=== PATIENT | female | born 1935 | race Caucasian/White ===

== ENCOUNTER 2016-07-06 13:35 | Observation (INO) | payer OTHER ==
[~2016-07-06] VITALS: Ht 154.9 cm; Wt 70.8 kg
[~2016-07-06 13:35] MED LIST: ALDACTONE25 MG PO; AMLODIPINE BES2.5 MG PO; ARMOUR THYROID120 M1 PO; ARMOUR THYROID120 MG PO; ARMOUR THYROID90 MG PO; ASCORBIC ACID500 M3 PO; BENADRYL25 MG PO; CARVEDILOL25 MG PO; CENTRUM SILVER1 EAC3 PO; CLONAZEPAM1 MG PO; CLONIDINE HCL0.1 MG PO; COLACE100 MG PO; COREG CR80 MG PO; ELIQUIS5 MG PO; FOLIC ACID1 MG PO; FUROSEMIDE20 MG PO; HYDROCHLOROTHIA25 MG PO; HYDROCODON-ACE1 EAC7 PO; KLOR-CON 1010 ME1 PO; LANSOPRAZOLE30 MG PO; LOVENOX40 MG/0.4 SC; PRINIVIL40 MG PO; PROTONIX40 MG PO; SENNA-TIME S T1 EACH PO; TRAMADOL HCL50 MG PO
[2016-07-06] MEDS ORDERED: KLOR-CON 1010 ME1 PO (14:54)
[2016-07-06] MEDS ORDERED: SYNTHROID75 MCG PO (14:54)
[2016-07-06] MEDS ORDERED: FUROSEMIDE40 MG PO (14:55)
[2016-07-06] MEDS ORDERED: LANSOPRAZOLE30 MG PO (14:55)
[2016-07-06] MEDS ORDERED: COREG25 M1 PO (14:55)
[2016-07-06] MEDS ORDERED: ELIQUIS5 MG PO (14:55)
[2016-07-06] MEDS ORDERED: CLONIDINE HCL0.1 MG PO (14:55)
[2016-07-06] MEDS ORDERED: AMLODIPINE BES2.5 MG PO (14:56)
[2016-07-06 15:25] LABS: HEMATOCRIT 40.7 % (36.0-46.0); MCH 31.6 PG (29.0-34.0); MCHC 35.1 G/DL (30.0-36.0); MCV 89.8 FL (83-99); MEAN PLAT.VOLUME 9.5 uM^3 (9.5-12.4); PLATELET COUNT 230 K/uL (156-360); RBC DIS.WIDTH-CV 12.7 % (11.8-14.6); RBC DIS.WIDTH-SD 41.3 % (39-53); RED BLOOD COUNT 4.53 M/uL (3.80-5.20); WHITE BLOOD COUNT 8.3 K/uL (4.1-10.2)
[2016-07-06 15:33] LABS: CHLORIDE 95 mEq/L (99-109); SODIUM 133 mEq/L (136-147)
[2016-07-06 15:34] LABS: INTER. NORMALIZED RATIO 1.1; PROTHROMBIN TIME 10.9 (9.2-11.2)
[2016-07-06 15:36] LABS: GLUCOSE 107 mg/dL (70-99)
[2016-07-06 15:37] LABS: ANION GAP 14 MEQ/L (2-14); TOTAL BILIRUBIN 0.5 mg/dL (0.0-1.0)
[2016-07-06 15:39] LABS: ALKALINE PHOSPHATASE 90 IU/L (3-129); GFR ESTIMATE (CALCULATED) 51 mL/min/
[2016-07-06 15:40] LABS: UREA NITROGEN (BUN) 17 mg/dL (9-23)
[2016-07-06 15:41] LABS: DIRECT BILIRUBIN 0.2 mg/dL (0.0-0.3)
[2016-07-06 15:48] LABS: TROP-I INTERPRETATION NEGATIVE; TROPONIN-I < 0.01 ng/mL (0.0-0.30)
[2016-07-06 18:16] VITALS: BP 172/78
[2016-07-06] MEDS ORDERED: TRAMADOL HCL50 MG PO (20:37)
[2016-07-06] MEDS ORDERED: VALIUM2 MG PO (20:39)
[2016-07-06] MEDS ORDERED: ASCORBIC ACID500 M4 PO (20:41)
[2016-07-06 21:36] VITALS: BP 152/82
[2016-07-06 22:04] LABS: TROP-I INTERPRETATION NEGATIVE; TROPONIN-I 0.03 ng/mL (0.0-0.30)
[2016-07-07 01:35] VITALS: BP 160/77
[2016-07-07 04:56] VITALS: BP 168/82
[2016-07-07 05:12] LABS: TROP-I INTERPRETATION NEGATIVE; TROPONIN-I 0.01 ng/mL (0.0-0.30)
[2016-07-07 09:32] LABS: MCH 31.8 PG (29.0-34.0); MCHC 35.1 G/DL (30.0-36.0); MCV 90.5 FL (83-99); MEAN PLAT.VOLUME 9.8 uM^3 (9.5-12.4); PLATELET COUNT 236 K/uL (156-360); RBC DIS.WIDTH-SD 43.2 % (39-53); RED BLOOD COUNT 4.31 M/uL (3.80-5.20)
[2016-07-07 10:00] LABS: ANION GAP 11 MEQ/L (2-14); CHLORIDE 98 MEQ/L (99-109); GFR ESTIMATE (CALCULATED) 56 mL/min/; GLUCOSE 96 mg/dL (70-99); SAMPLE HEMOLYSIS CHECK 0; SAMPLE ICTERIC CHECK 0; SAMPLE LIPEMIA CHECK 0; SODIUM 134 MEQ/L (136-147); UREA NITROGEN (BUN) 17 mg/dL (9-23)
== END 2016-07-07 11:35 | disposition home or self-care (01) ==
LOC: EME 13:35 → 5WEST 16:12 → EDOF 16:12 → 5WEST 17:54
PROVIDERS: Internal Medicine; Physician Assistant
DX: R07.89 Other chest pain (principal); I48.0 Paroxysmal atrial fibrillation; I16.0 Hypertensive urgency; I10 Essential (primary) hypertension; E87.1 Hypo-osmolality and hyponatremia; E03.9 Hypothyroidism, unspecified; Z79.01 Long term (current) use of anticoagulants; Z87.891 Personal history of nicotine dependence; Z85.3 Personal history of malignant neoplasm of breast; Z88.6 Allergy status to analgesic agent; Z88.1 Allergy status to other antibiotic agents
CPT/HCPCS: 71020; 71275; 80048; 80076; 83880; 84484; 85027; 85610; 93005; 99281; 99285; G0378; J0360; J1650

== ENCOUNTER 2017-11-02 19:20 | Inpatient (IN) | payer OTHER ==
[~2017-11-02] VITALS: Ht 152.4 cm; Wt 69.3 kg
[~2017-11-02 19:20] MED LIST changes: +ASCORBIC ACID500 M4 PO; +COREG25 M1 PO; +FUROSEMIDE40 MG PO; +SYNTHROID75 MCG PO; +VALIUM2 MG PO
[2017-11-02 20:01] LABS: BASOPHIL (%) 0.4 % (0-1); EOSINOPHIL (%) 1.1 % (0-5); EOSINOPHIL COUNT 0.1 K/uL (0-0.3); HEMATOCRIT 39.2 % (36.0-46.0); HEMOGLOBIN 13.8 G/DL (11.9-15.5); IMMATURE GRANULOCYTE (%) 0.7 % (0.0-0.7); LYMPHOCYTE (%) 27.9 % (15-42); LYMPHOCYTE COUNT 2.1 K/uL (1.0-2.8); MCH 32.9 PG (29.0-34.0); MCHC 35.2 G/DL (30.0-36.0); MCV 93.3 FL (83-99); MONOCYTE (%) 7.4 % (3-12); MONOCYTE COUNT 0.6 K/uL (0-0.8); NEUTROPHIL (%) 62.5 % (45-76); NEUTROPHIL COUNT 4.7 K/uL (1.8-6.4); PLATELET COUNT 217 K/uL (156-360); RBC DIS.WIDTH-CV 13.4 % (11.8-14.6); RBC DIS.WIDTH-SD 46.1 % (39-53); WHITE BLOOD COUNT 7.4 K/uL (4.1-10.2)
[2017-11-02 20:08] LABS: INTER. NORMALIZED RATIO 0.9
[2017-11-02 20:09] LABS: ALBUMIN 3.9 g/dL (3.2-4.8); CHLORIDE 98 mEq/L (99-109); SODIUM 133 mEq/L (136-147)
[2017-11-02 20:10] LABS: MAGNESIUM 1.8 mg/dL (1.3-2.7)
[2017-11-02 20:11] LABS: PTT 26.8 SEC (25-37)
[2017-11-02 20:12] LABS: GLUCOSE 109 mg/dL (70-99); TOTAL PROTEIN 6.9 g/dL (6.4-8.3)
[2017-11-02 20:14] LABS: TOTAL BILIRUBIN 0.6 mg/dL (0.0-1.0)
[2017-11-02 20:15] LABS: ALKALINE PHOSPHATASE 50 IU/L (3-129)
[2017-11-02 20:16] LABS: CREATININE 1.2 mg/dL (0.6-1.3); GFR ESTIMATE (CALCULATED) 45 mL/min/
[2017-11-02 20:17] LABS: AST (GOT) 23 IU/L (2-34); UREA NITROGEN (BUN) 19 mg/dL (9-23)
[2017-11-02 20:18] LABS: ALT (GPT) 25 IU/L (3-49)
[2017-11-02 20:21] LABS: TROP-I INTERPRETATION NEGATIVE; TROPONIN-I < 0.01 ng/mL (0.0-0.30)
[2017-11-02 21:14] LABS: THYROTROPIN (TSH) 3.2 MIU/L (0.4-5.5)
[2017-11-03 02:33] VITALS: BP 133/68
[2017-11-03 05:13] LABS: HEMATOCRIT 34.5 % (36.0-46.0); HEMOGLOBIN 11.9 G/DL (11.9-15.5); MCH 32.4 PG (29.0-34.0); MCHC 34.5 G/DL (30.0-36.0); PLATELET COUNT 211 K/uL (156-360); RBC DIS.WIDTH-CV 13.7 % (11.8-14.6); RBC DIS.WIDTH-SD 47.1 % (39-53); RED BLOOD COUNT 3.67 M/uL (3.80-5.20); WHITE BLOOD COUNT 5.7 K/uL (4.1-10.2)
[2017-11-03 05:37] VITALS: BP 170/80
[2017-11-03 05:38] LABS: CHLORIDE 101 MEQ/L (99-109); GFR ESTIMATE (CALCULATED) 56 mL/min/; GLUCOSE 99 mg/dL (70-99); POTASSIUM 3.5 MEQ/L (3.7-5.4); SODIUM 134 MEQ/L (136-147); UREA NITROGEN (BUN) 16 mg/dL (9-23)
[2017-11-03 06:33] VITALS: BP 175/80
[2017-11-03 07:35] VITALS: BP 202/99
[2017-11-03 13:58] VITALS: BP 145/76
[2017-11-03] MEDS ORDERED: DIAZEPAM5 MG PO (15:24)
[2017-11-03] MEDS ORDERED: ELIQUIS5 MG PO (15:24)
[2017-11-03] MEDS ORDERED: CARDIZEM CD,CA180 MG PO (15:24)
== END 2017-11-03 17:07 | disposition home or self-care (01) | DRG 176 ==
LOC: EME 19:20 → EDOF 11-03 00:31 → ENRESERV 11-03 00:36 → 4EAST 11-03 01:37
PROVIDERS: Emergency Medicine; Hospitalist
DX: I26.99 Other pulmonary embolism without acute cor pulmonale (principal); E87.1 Hypo-osmolality and hyponatremia; I48.0 Paroxysmal atrial fibrillation; I10 Essential (primary) hypertension; K21.9 Gastro-esophageal reflux disease without esophagitis; E78.5 Hyperlipidemia, unspecified; E03.9 Hypothyroidism, unspecified; M19.90 Unspecified osteoarthritis, unspecified site; H35.30 Unspecified macular degeneration; H35.52 Pigmentary retinal dystrophy; H54.61 Unqualified visual loss, right eye, normal vision left eye; I34.0 Nonrheumatic mitral (valve) insufficiency; I36.1 Nonrheumatic tricuspid (valve) insufficiency; F41.9 Anxiety disorder, unspecified; I48.2 Chronic atrial fibrillation; Z87.891 Personal history of nicotine dependence; Z90.13 Acquired absence of bilateral breasts and nipples; Z85.3 Personal history of malignant neoplasm of breast; Z90.49 Acquired absence of other specified parts of digestive tract; Z79.01 Long term (current) use of anticoagulants; Z82.5 Family history of asthma and other chronic lower respiratory diseases
CPT/HCPCS: 71275; 80048; 80053; 83735; 84439; 84443; 84484; 85025; 85027; 85379; 85610; 85730; 93005; 93306; 93970; 99281; 99285; J1650; J7040

== ENCOUNTER 2017-11-17 12:58 | Inpatient (IN) | payer OTHER ==
[2017-11-17] VITALS (7 sets, daily range): BP systolic 144–178; BP diastolic 85–111
[~2017-11-17] VITALS: Ht 152.4 cm; Wt 71.2 kg
[~2017-11-17 12:58] MED LIST changes: +CARDIZEM CD,CA180 MG PO; +DIAZEPAM5 MG PO
[2017-11-17] MEDS ORDERED: PREVACID30 MG PO (13:20)
[2017-11-17] MEDS ORDERED: CARVEDILOL25 MG PO (13:21)
[2017-11-17] MEDS ORDERED: AMLODIPINE BES2.5 MG PO (13:21)
[2017-11-17] MEDS ORDERED: CARTIA XT120 MG PO (13:22)
[2017-11-17] MEDS ORDERED: CARTIA XT180 MG PO (13:24)
[2017-11-17 13:29] LABS: CHLORIDE 81 mEq/L (99-109); POTASSIUM 3.9 mEq/L (3.7-5.4)
[2017-11-17 13:30] LABS: GLUCOSE 115 mg/dL (70-99)
[2017-11-17 13:33] LABS: SODIUM 112 mEq/L (136-147)
[2017-11-17 13:34] LABS: CREATININE 0.8 mg/dL (0.6-1.3); GFR ESTIMATE (CALCULATED) > 59 mL/min/
[2017-11-17 13:35] LABS: UREA NITROGEN (BUN) 17 mg/dL (9-23)
[2017-11-17 13:56] LABS: HEMOGLOBIN 11.8 G/DL (11.9-15.5); MCHC 37.6 G/DL (30.0-36.0); PLATELET COUNT 177 K/uL (156-360); RBC DIS.WIDTH-CV 12.5 % (11.8-14.6); RED BLOOD COUNT 3.61 M/uL (3.80-5.20); WHITE BLOOD COUNT 7.9 K/uL (4.1-10.2)
[2017-11-17 13:58] LABS: COMMENTS - BLOOD GASES A+C+; DEVICE NC; O2 FLOW 2 L/MIN; SITE RR; TOTAL RESP RATE 17 resp/min; pH 7.51 (7.35-7.45)
[2017-11-17 13:59] LABS: BASE EXCESS 1.5 mEq/L (-3 to +3); BICARBONATE 23.9 mEq/L (22-26); CARBOXY HGB 1.9 % (0-5); METHEMOGLOBIN 1.3 % (0-1.5); PCO2 30 mm Hg (35-45); PO2 71 mm Hg (80-100)
[2017-11-17 14:24] LABS: INTER. NORMALIZED RATIO 1.7
[2017-11-17 14:26] LABS: PTT 30.6 SEC (25-37)
[2017-11-17 14:29] LABS: CHLORIDE 80 mEq/L (99-109); POTASSIUM 3.8 mEq/L (3.7-5.4)
[2017-11-17 14:30] LABS: GLUCOSE 105 mg/dL (70-99)
[2017-11-17 14:34] LABS: CREATININE 0.8 mg/dL (0.6-1.3); GFR ESTIMATE (CALCULATED) > 59 mL/min/; SODIUM 112 mEq/L (136-147)
[2017-11-17 14:35] LABS: UREA NITROGEN (BUN) 17 mg/dL (9-23)
[2017-11-17 23:36] LABS: CHLORIDE 84 mEq/L (99-109)
[2017-11-17 23:37] LABS: POTASSIUM 3.2 mEq/L (3.7-5.4)
[2017-11-17 23:38] LABS: GLUCOSE 131 mg/dL (70-99)
[2017-11-17 23:42] LABS: CREATININE 0.8 mg/dL (0.6-1.3); GFR ESTIMATE (CALCULATED) > 59 mL/min/
[2017-11-17 23:43] LABS: UREA NITROGEN (BUN) 14 mg/dL (9-23)
[2017-11-17 23:47] LABS: SODIUM 116 mEq/L (136-147)
[2017-11-18] VITALS (20 sets, daily range): BP systolic 16–158; BP diastolic 59–85
[2017-11-18 00:18] LABS: UR CREATININE CONCENTRATION 36.3 MG/DL
[2017-11-18 05:41] LABS: BASOPHIL (%) 0.2 % (0-1); EOSINOPHIL (%) 0.6 % (0-5); HEMATOCRIT 32.5 % (36.0-46.0); HEMOGLOBIN 11.7 G/DL (11.9-15.5); IMMATURE GRANULOCYTE (%) 0.6 % (0.0-0.7); LYMPHOCYTE (%) 12.2 % (15-42); LYMPHOCYTE COUNT 0.8 K/uL (1.0-2.8); MCH 31.5 PG (29.0-34.0); MONOCYTE (%) 8.2 % (3-12); MONOCYTE COUNT 0.5 K/uL (0-0.8); NEUTROPHIL (%) 78.2 % (45-76); PLATELET COUNT 205 K/uL (156-360); RBC DIS.WIDTH-CV 12.5 % (11.8-14.6); RBC DIS.WIDTH-SD 40.5 % (39-53); RED BLOOD COUNT 3.72 M/uL (3.80-5.20); WHITE BLOOD COUNT 6.3 K/uL (4.1-10.2)
[2017-11-18 05:53] LABS: MCV 87.4 FL (83-99)
[2017-11-18 06:14] LABS: CHLORIDE 86 MEQ/L (99-109); CREATININE 0.8 MG/DL (0.6-1.3); GFR ESTIMATE (CALCULATED) > 59 mL/min/; POTASSIUM 3.5 MEQ/L (3.7-5.4); SODIUM 121 MEQ/L (136-147); UREA NITROGEN (BUN) 12 mg/dL (9-23)
[2017-11-18 06:19] LABS: GLUCOSE 88 mg/dL (70-99)
[2017-11-18 13:11] LABS: CHLORIDE 87 MEQ/L (99-109); CREATININE 0.8 MG/DL (0.6-1.3); GFR ESTIMATE (CALCULATED) > 59 mL/min/; GLUCOSE 95 mg/dL (70-99); POTASSIUM 3.4 MEQ/L (3.7-5.4); SODIUM 120 MEQ/L (136-147); UREA NITROGEN (BUN) 13 mg/dL (9-23)
[2017-11-18 18:35] LABS: CHLORIDE 88 MEQ/L (99-109); CREATININE 0.8 MG/DL (0.6-1.3); GFR ESTIMATE (CALCULATED) > 59 mL/min/; GLUCOSE 108 mg/dL (70-99); POTASSIUM 3.3 MEQ/L (3.7-5.4); SODIUM 121 MEQ/L (136-147); UREA NITROGEN (BUN) 15 mg/dL (9-23)
[2017-11-19 01:09] LABS: CHLORIDE 92 mEq/L (99-109); POTASSIUM 3.8 mEq/L (3.7-5.4); SODIUM 125 mEq/L (136-147)
[2017-11-19 01:11] LABS: GLUCOSE 99 mg/dL (70-99)
[2017-11-19 01:14] LABS: CREATININE 0.8 mg/dL (0.6-1.3); GFR ESTIMATE (CALCULATED) > 59 mL/min/
[2017-11-19 01:15] LABS: UREA NITROGEN (BUN) 15 mg/dL (9-23)
[2017-11-19 04:00] VITALS: BP 133/62
[2017-11-19 05:21] LABS: CHLORIDE 95 MEQ/L (99-109); CREATININE 0.8 MG/DL (0.6-1.3); GFR ESTIMATE (CALCULATED) > 59 mL/min/; GLUCOSE 99 mg/dL (70-99); SODIUM 125 MEQ/L (136-147); UREA NITROGEN (BUN) 13 mg/dL (9-23)
[2017-11-19 09:00] VITALS: BP 161/72
[2017-11-19] MEDS ORDERED: VALIUM5 MG PO (11:08)
[2017-11-19] MEDS ORDERED: ELIQUIS5 MG PO (11:10)
[2017-11-19] MEDS ORDERED: AUGMENTIN875 MG PO (11:12)
[2017-11-19 12:00] VITALS: BP 143/75
[2017-11-19 12:31] LABS: CHLORIDE 96 MEQ/L (99-109); CREATININE 0.8 MG/DL (0.6-1.3); GFR ESTIMATE (CALCULATED) > 59 mL/min/; GLUCOSE 109 mg/dL (70-99); POTASSIUM 4.1 MEQ/L (3.7-5.4); SODIUM 130 MEQ/L (136-147); UREA NITROGEN (BUN) 15 mg/dL (9-23)
[2017-11-19 17:50] VITALS: BP 154/73
[2017-11-19 20:00] VITALS: BP 169/99
[2017-11-19 23:46] VITALS: BP 117/58
[2017-11-20 04:30] VITALS: BP 130/66
[2017-11-20 05:53] LABS: CHLORIDE 98 MEQ/L (99-109); CREATININE 0.9 MG/DL (0.6-1.3); GFR ESTIMATE (CALCULATED) > 59 mL/min/; GLUCOSE 103 mg/dL (70-99); POTASSIUM 3.9 MEQ/L (3.7-5.4); SODIUM 131 MEQ/L (136-147); UREA NITROGEN (BUN) 18 mg/dL (9-23)
[2017-11-20 07:23] VITALS: BP 174/75
[2017-11-20] MEDS ORDERED: CEFTIN500 MG PO (09:53)
[2017-11-20] MEDS ORDERED: LASIX20 MG PO (09:53)
[2017-11-20 10:35] VITALS: BP 140/73
== END 2017-11-20 12:20 | disposition home or self-care (01) | DRG 643 ==
LOC: EME 12:58 → 4WEST 15:20 → EDOF 15:20 → ENRESERV 15:23 → 4WEST 16:59 → ENRESERV 11-18 21:48 → 4EAST 11-18 22:32
PROVIDERS: Emergency Medicine; Family Medicine; Internal Medicine Critical Care Medicine
DX: E22.2 Syndrome of inappropriate secretion of antidiuretic hormone (principal); J18.9 Pneumonia, unspecified organism; E03.9 Hypothyroidism, unspecified; I11.0 Hypertensive heart disease with heart failure; I50.9 Heart failure, unspecified; I48.0 Paroxysmal atrial fibrillation; D72.819 Decreased white blood cell count, unspecified; J20.9 Acute bronchitis, unspecified; K21.9 Gastro-esophageal reflux disease without esophagitis; F41.9 Anxiety disorder, unspecified; M19.90 Unspecified osteoarthritis, unspecified site; Z86.711 Personal history of pulmonary embolism; Z79.01 Long term (current) use of anticoagulants; Z85.3 Personal history of malignant neoplasm of breast; Z90.13 Acquired absence of bilateral breasts and nipples; Z88.6 Allergy status to analgesic agent; Z88.3 Allergy status to other anti-infective agents; Z91.19 Patient's noncompliance with other medical treatment and regimen; Z87.891 Personal history of nicotine dependence; Z82.49 Family history of ischemic heart disease and other diseases of the circulatory system
CPT/HCPCS: 36600; 71046; 71275; 80048; 80048 91; 82436; 82570; 82803; 83605; 83880; 83935; 84133; 84300; 85025; 85027; 85610; 85730; 87040; 87449; 87641; 93005; 94010; 94640; 94640 76; 94760; 94799; 99202; 99281; 99285; J0456; J0696; J1940; J7030